=== PATIENT | female | born 1945 | race Caucasian/White ===

== ENCOUNTER 2023-09-26 10:10 | Outpatient (CLI) | payer MEDICARE, SELFPAY ==
[2023-09-26 10:59] LABS: Anion Gap 7 mmol/L (4-12); Blood Urea Nitrogen 18 mg/dL (7-17); Calcium 9.2 mg/dL (8.4-10.2); Carbon Dioxide 25 mmol/L (22-30); Chloride 106 mmol/L (98-107); Estimated Glomerular Filt Rate > 60; Glucose 117 mg/dL (65-110); Potassium 4.1 mmol/L (3.4-5.0); Sodium 138 mmol/L (137-145)
== END 2023-09-26 10:11 | disposition home or self-care (01) ==
LOC: ANHSURGERY 10:16
PROVIDERS: Anesthesiology; PCP Family Medicine; Visit Provider Urology
DX: Z79.899 Other long term (current) drug therapy (principal); Z01.818 Encounter for other preprocedural examination
CPT/HCPCS: 36415; 80048

== ENCOUNTER 2023-10-05 01:18 | Day surgery (SDC) | payer MEDICARE, SELFPAY ==
--- NOTE | 2023-09-24 08:06 | PC.NURSE ---
Report to the Outpatient Waiting Room, entrance under the green pavilion located off [facility], at time ___8:15 AM____ on date __10/05/23 . Planned Procedure Time: 10:15 AM . Time changes happen often and if your time is changed the preop area will call you the afternoon before. - You and your visitor will be asked to self-screen and do not enter if you have any COVID symptoms. - A mask is optional within the hospital at this time. Patients may have clear liquids (water, carbonated beverages, clear teas, apple juice) until 3 hours prior to surgery( 7:15 AM) with a maximum of 20 ounces. - No food from midnight until time of surgery - Infants may have breast milk until 4 hours before surgery, infant formula 6 hours prior to surgery. - Children will be allowed to drink immediately following surgery. If applicable, please bring a bottle or sippy cup to assist with drinking. Juice, water, soda, and popsicles are readily available. For infants on formula, please bring formula the day of surgery. Pacifiers are allowed. Take the following medications with a SIP of water the morning of surgery: _LEVOTHYROXINE,METOPROLOL DO NOT STOP ANY OF YOUR OTHER PRESCRIPTION MEDICATIONS PRIOR TO SURGERY ?EXCEPT THE FOLLOWING Medications to discontinue per physician __HOLD ASPIRIN 7 DAYS PRE OP PER DR ERIC.LAST DOSE 09/27/23. HOLD ALL VITAMINS AND SUPPLEMENTS _3 DAYS PRE OP.LAST DOSE 10/01/23 Please no make-up, nail kyrgyz, hairspray, perfume, deodorant, or body powder the day of surgery. No jewelry (including any body piercings) or valuables the day of surgery, leave them at home. Please take a shower or bath the night before, or the morning of, surgery with an antibacterial soap. Wear comfortable, loose fitting clothing. Children are encouraged to wear pajamas. - Jewelry must be removed prior to entering the operating room. Rings and piercings that are not removed may be cut off. - The hospital will not accept responsibility for valuables. - Please leave all valuables, including medications, at home the day of surgery. If you are going home after surgery, a licensed transporter driver must drive you home. - NO public transportation without another adult if you receive anesthesia. - We recommend that an adult stay with you for 24 hours following discharge. - We also recommend that you do not drive, make important decision, drink alcoholic beverages, or take any drugs that were not prescribed by your health care provider for at least 24 hours after your discharge time. Follow any additional instructions given to you from your surgeon. If you or anyone in your household have experienced Covid symptoms in the past week, please notify your surgeon or the nurse liaison at the phone number below for possible testing. Telephone instructions given to _PATIENT and asked if any additional questions and then verbalized understanding. Patient advised to call surgeon office or pre surgery nurse liaison [phone] if any additional questions.
[2023-09-24 08:27] VITALS: BMI 50.5
--- NOTE | 2023-09-30 19:34 | PM.IMHP ---
H&P: HPI History of Present Illness Date/Time: 09/30/23 19:34 Chief Complaint: incontinence Narrative: TIAN due to ISD previous XRT Review of Systems Review of Systems: All systems reviewed & are unremarkable except as noted in HPI and below [facility] Social History Social History Smoking status: Never smoker Living arrangements: alone Spiritual care concerns: No Meds Home Medications and Allergies Home Medications Medication Instructions Recorded Confirmed Type acetaminophen 500 mg capsule 500 mg PO PRN PRN Pain 09/24/23 09/24/23 History albuterol 90 mcg/actuation aerosol 1 mcg inhalation PRN PRN Shortness 09/24/23 09/24/23 History inhaler Of Breath aspirin 81 mg tablet,delayed 81 mg PO HS 09/24/23 09/24/23 History release (Adult Low Dose Aspirin) cetirizine 10 mg capsule (Zyrtec) 10 mg PO PRN PRN Allergy Symptoms 09/24/23 09/24/23 History cholecalciferol (vitamin D3) 50 50 mcg PO DAILY 09/24/23 09/24/23 History mcg (2,000 unit) tablet coenzyme Q10 100 mg capsule 200 mg PO HS 09/24/23 09/24/23 History (CoQ-10) famotidine 20 mg tablet (Pepcid) 20 mg PO PRN PRN Heartburn 09/24/23 09/24/23 History furosemide 20 mg tablet (Lasix) 20 mg PO DAILY 09/24/23 09/24/23 History hydrocodone 7.5 mg-acetaminophen 1 tablet PO PRN PRN Pain 09/24/23 09/24/23 History 325 mg tablet levothyroxine 112 mcg tablet 112 mcg PO DAILY 09/24/23 09/24/23 History metoprolol succinate 50 mg 25 mg PO BID 09/24/23 09/24/23 History tablet,extended release 24 hr naproxen sodium 220 mg capsule 220 mg PO PRN PRN Pain 09/24/23 09/24/23 History (Aleve) rosuvastatin 5 mg tablet 5 mg PO HS 09/24/23 09/24/23 History spironolactone 25 mg tablet 25 mg PO DAILY 09/24/23 09/24/23 History Allergies Allergy/AdvReac Type Severity Reaction Status Date / Time Calcium Channel Blocking AdvReac Chest Pain Verified 09/24/23 07:45 Agent Dilt chlorhexidine AdvReac Rash Verified 09/24/23 07:44 [From Hibiclens] codeine AdvReac Other Verified 09/24/23 07:42 piperacillin [From Zosyn] AdvReac Rash Verified 09/24/23 07:44 tazobactam [From Zosyn] AdvReac Rash Verified 09/24/23 07:44 tramadol AdvReac Other Verified 09/24/23 07:43 Exam Narrative: fixed urethra Assessment and Plan Assessment and plan (1) Intrinsic sphincter deficiency (ISD): Code(s): N36.42 - Intrinsic sphincter deficiency (ISD) Status: Acute Assessment and Plan: urethral bulking agent
[2023-10-05] VITALS (8 sets, daily range): BP systolic 124–147; BP diastolic 65–86; PULSE 58–86; RESP 16–20; TEMP 36.7; O2SAT 96; BMI 50.1
--- NOTE | 2023-10-05 04:35 | WPDHPUPDATE1 ---
History and Physical Update Update Date/Time: 10/05/23 04:35 History and Physical has been reviewed, including an updated exam of the patient. There are NO changes in the patient's condition. Risks, benefits, and alternatives have been discussed and questions answered. Patient agrees to proceed with procedure.
[2023-10-05] MEDS: LACTATED RINGERS 1,000 ML 30 ML IV CONT (08:50)
[2023-10-05] MEDS: LIDOCAINE HCL 2% GEL UROJET 10 ML PKG MUCOUS MEM (09:14)
[2023-10-05] MEDS: ceFAZolin 3 GM/D5W 100 ML 100 ML IVPB (09:34)
--- NOTE | 2023-10-05 10:36 | W.PM.PROC2 ---
Procedure Note - Detailed Date of Procedure 10/05/23 Pre-op Diagnosis Intrinsic sphincter deficiency Post-op Diagnosis Same Procedure Performed Cystoscopy with suburethral injection of implant material Surgeon aNder Joel MD Anesthesia MAC and Local Indications This along with intrinsic sphincter deficiency and urinary incontinence. She is here today for injection of bulking agent. She understands risks of bleeding, infection, damage to the urinary tract, including efficacy, need for repeat procedures, urinary retention requiring catheterization. She a has decreased potential efficacy due to body habitus Findings Open urethra consistent with intrinsic sphincter deficiency Description of Procedure She is correctly identified. Informed consent obtained. From the operating. She was given monitored his care. She was placed in dorsal lithotomy position. She was prepped and draped sterile fashion. Time-out was performed. Cystoscopy revealed a normal appearing bladder without abnormalities. There is no tumors or stones. There is no significant trabeculations. Urethra is open consistent with intrinsic sphincter deficiency. I chose the site the mid urethra distal to bladder neck. I injected 1-3/4 syringe of bulking agent. I injected circumferentially forming several pillows. The inferior part of the urethra to the bulking agent not as well as the 10 to 2 o'clock position. I will ultimately happy the bulking effect. Her bladder was left partially full. She was awakened transferred to PACU in stable condition. Estimated Blood Loss 1 Drains No Packing No Pathology None sent Complications No immediate complications Condition Stable Disposition PACU
[2023-10-05] MEDS: HYDROcodone/acetaminophen (*CRX) 7.5-325 MG TABLET 1 TAB PO (11:52)
--- NOTE | 2023-10-30 12:28 | WPDANESEPPF ---
Anes - Initial Pre Proc Eval Procedure: Operation Date: 10/05/23 10:15 Proposed Procedures p Cystoscopy, Injection Bulking Agent - Nader Joel MD Date/Time: 10/30/23 12:28 Surgeon: Nader Joel MD Pre Op Diagnosis: ID Patient Data Age: 78 Gender: F Height: 1.6 m Weight: 128.3 kg Last Vital Signs Temp 36.7 C 10/05/23 08:16 Pulse 80 10/05/23 12:35 Resp 20 10/05/23 12:35 BP 133/72 10/05/23 12:35 Pulse Ox 96 10/05/23 08:16 O2 Del Method Room Air 10/05/23 12:35 Allergies Allergy/AdvReac Type Severity Reaction Status Date / Time Calcium Channel Blocking Allergy Severe Chest Pain Verified 10/05/23 08:42 Agent Dilt chlorhexidine AdvReac Rash Verified 10/05/23 08:42 [From Hibiclens] codeine AdvReac Other Verified 10/05/23 08:42 piperacillin [From Zosyn] AdvReac Rash Verified 10/05/23 08:42 tazobactam [From Zosyn] AdvReac Rash Verified 10/05/23 08:42 tramadol AdvReac Other Verified 10/05/23 08:42 Home Medications Medication Instructions Recorded Confirmed Type acetaminophen 500 mg capsule 500 mg PO PRN PRN Pain 09/24/23 09/24/23 History albuterol 90 mcg/actuation aerosol 1 mcg inhalation PRN PRN Shortness 09/24/23 09/24/23 History inhaler Of Breath aspirin 81 mg tablet,delayed 81 mg PO HS 09/24/23 10/05/23 History release (Adult Low Dose Aspirin) cetirizine 10 mg capsule (Zyrtec) 10 mg PO PRN PRN Allergy Symptoms 09/24/23 09/24/23 History cholecalciferol (vitamin D3) 50 50 mcg PO DAILY 09/24/23 10/05/23 History mcg (2,000 unit) tablet coenzyme Q10 100 mg capsule 200 mg PO HS 09/24/23 10/05/23 History (CoQ-10) famotidine 20 mg tablet (Pepcid) 20 mg PO PRN PRN Heartburn 09/24/23 09/24/23 History furosemide 20 mg tablet (Lasix) 20 mg PO DAILY 09/24/23 09/24/23 History hydrocodone 7.5 mg-acetaminophen 1 tablet PO PRN PRN Pain 09/24/23 09/24/23 History 325 mg tablet levothyroxine 112 mcg tablet 112 mcg PO DAILY 09/24/23 09/24/23 History metoprolol succinate 50 mg 25 mg PO BID 09/24/23 10/05/23 History tablet,extended release 24 hr naproxen sodium 220 mg capsule 220 mg PO PRN PRN Pain 09/24/23 09/24/23 History (Aleve) rosuvastatin 5 mg tablet 5 mg PO HS 09/24/23 09/24/23 History spironolactone 25 mg tablet 25 mg PO DAILY 09/24/23 09/24/23 History Patient hx anesthesia problems: none Family hx anesthesia problems: none Results Review: All pre-operative results and documents have been reviewed as part of the pre-operative evaluation. [facility] Past Medical History Medical History (Updated 10/30/23 @ 12:28 by Lionel Lozoya MD) Intrinsic sphincter deficiency (ISD) Morbid obesity Social History Social History Smoking status: Never smoker Living arrangements: alone Spiritual care concerns: No Anes - Eval Final PreProcedure Day of Procedure 10/30/23 12:28 Patient weight: morbidly obese Anesthetic plan: proceed Anesthesia type and monitoring: general Results Review: All pre-operative results and documents have been reviewed as part of the pre-operative evaluation. Informed Consent: The patient's anesthetic plan and its attendant risks and benefits were discussed with the patient/family/POA. Questions were solicited and answers provided to the satisfaction of the patient/family/POA.
== END 2023-10-05 13:16 | disposition home or self-care (01) ==
PROVIDERS: PCP Family Medicine; Visit Provider Urology
PROC: 3E0K8GC Introduction of Other Therapeutic Substance into Genitourinary Tract, Via Natural or Artificial Opening Endoscopic (ICD-10-PCS; CPT 51715; principal; 2023-10-05 10:15)
DX: N36.42 Intrinsic sphincter deficiency (ISD) (principal); Z79.51 Long term (current) use of inhaled steroids; Z79.82 Long term (current) use of aspirin
CPT/HCPCS: 51715; A9270; J0690; J2704; J3010; J7120; L8606